=== PATIENT | female | born 1990 | race Caucasian/White ===

== ENCOUNTER 2017-01-08 22:35 | Emergency (ER) | payer SELFPAY ==
[~2017-01-08] VITALS: Ht 152.4 cm; Wt 61.4 kg
[2017-01-08 23:11] VITALS: Ht 152.4 cm; Wt 61.4 kg
[2017-01-09] MEDS ORDERED: IBUPROFEN 600 MG TAB PO ONE (03:00)
[2017-01-09] MEDS ORDERED: IBUP-1542 PO (03:04)
[2017-01-09] MEDS ORDERED: ERYT1OIN6 LEFT EYE (03:04)
[2017-01-09] MEDS ORDERED: AMOX1TAB10 PO (03:04)
--- NOTE | 2017-01-09 03:19 | ERD ---
ER Documentation Chief Complaint Date/Time DATE: 01/09/17 TIME: 03:17 Chief Complaint BODYACHES, SORE THROAT, LT EYE PAIN X2 DAYS. HPI 26-year-old male presents to emergency department for complaints of sore throat body aches and fever that started 2 days ago, patient describes the pain as throbbing pain, 6/10 scale, as was upon swallowing. Patient is also complaining of left upper eyelid pain, swelling the left upper eyelid, more on the outer canthus, complains of pain sharp pain 4/10 scale, she was upon touching the area. Patient denies any eye discharge. Patient denies any fever or chills. ROS All systems reviewed and are negative except as per history of present illness. Medications Home Meds Active Scripts Erythromycin Base (Erythromycin) 1 Gm Oint...g., 1 GM LEFT EYE Q4H WHILE AWAKE for 7 Days Prov:SUE ADAMSON NP 01/09/17 Ibuprofen* (Motrin*) 600 Mg Tab, 600 MG PO Q6H Y for PAIN AND OR ELEVATED TEMP, #30 TAB Prov:SUE ADAMSON NP 01/09/17 Amoxicillin/Potassium Clav (Amox-Clav 875-125 mg Tablet) 875-125 mg Tab, 1 TAB PO BID for 10 Days, #20 TAB Prov:SUE ADAMSON NP 01/09/17 Allergies Allergies: Coded Allergies: No Known Drug Allergy (Verified Allergy, Unknown, 01/08/17) PMhx/Soc Medical and Surgical Hx: pt denies Medical Hx, pt denies Surgical Hx Hx Alcohol Use: Yes Hx Substance Use: No Hx Tobacco Use: No Smoking Status: Never smoker FmHx Family History: No coronary disease, No diabetes, No other Physical Exam Vitals Vital Signs Date Time Temp Pulse Resp B/P Pulse Ox O2 Delivery O2 Flow Rate FiO2 01/08/17 23:11 99.3 93 20 116/58 100 Physical Exam GENERAL: The patient is well developed and appropriate for usual state of health, in no apparent distress. HEENT: Atraumatic. Bilateral eyes are PERRLA EOMs intact. Noted stye on the left upper eyelid outer canthus. No swelling surrounding the eye. Ears: Normal tympanic membrane, no erythema or bulging. No ear canal swelling. No ear discharge. Nose: normal nasal turbinates, no erythema or swelling. Normal nasal discharge. Throat: oropharynx erythematous with tonsillar swelling and tonsillar exudates noted. No lymphadenopathy. CHEST: Clear to auscultation bilaterally. There are no rales, wheezes or rhonchi. HEART: Regular rate and rhythm. No murmurs, clicks, rubs or gallops. No S3 or S4. ABDOMEN: Soft, nontender and nondistended. Good bowel sounds. No rebound or guarding. No gross peritonitis. No gross organomegaly or masses. No Camacho sign or McBurney point tenderness. BACK: No midline or flank tenderness. EXTREMITIES: Equal pulses bilaterally. There is no peripheral clubbing, cyanosis or edema. No focal swelling or erythema. Full range of motion. Grossly neurovascularly intact. NEURO: Alert and oriented. Cranial nerves 2-12 intact. Motor strength in all 4 extremities with 5/5 strength. Sensation grossly intact. Normal speech and gait. SKIN: There is no apparent rash or petechia. The skin is warm and dry. HEMATOLOGIC AND LYMPHATIC: There is no evidence of excessive bruising or lymphedema. No gross cervical, axillary, or inguinal lymphadenopathy. Results 24 hrs Current Medications Medications (Trade) Dose Ordered Sig/Felipe Route PRN Reason Start Time Stop Time Status Last Admin Dose Admin Ibuprofen (Motrin) 600 mg ONCE ONCE PO 01/09/17 03:00 01/09/17 03:01 DC 01/09/17 03:01 Patient was given medication for pain here in emergency department, after treatment, patient verbalized feeling much better. Patient's pain is improved. Procedures/MDM Medical decision making: Patient symptoms is likely consistent with acute bacterial pharyngitis, most likely strep throat. Low suspicion for peritonsillar abscess, mononucleosis, no symptoms of epiglottitis, laryngitis. No oral airway obstruction noted. No symptoms of sepsis at this time. Patient appears well and is hemodynamically stable. Patient was given for amoxicillin, ibuprofen, erythromycin ophthalmic ointment, is advised to follow-up with primary care doctor in 2-3 days for reevaluation of symptoms. Patient is advised to do salt water gargles. Patient is advised to return to emergency department for worsening symptoms. Also has left upper eyelid stye, mistreated, does not have any symptoms of periorbital cellulitis or orbital cellulitis. Disposition: Home. Stable. Disclaimer: Inadvertent spelling and grammatical errors are likely due to EHR/ dictation software use and do not reflect on the overall quality of patient care. Also, please note that the electronic time recorded on this note does not necessarily reflect the actual time of the patient encounter. Departure Diagnosis: Primary Impression: Hordeolum Hordeolum type: externum Laterality: left Eyelid: upper Qualified Code: H00.014 - Hordeolum externum of left upper eyelid Additional Impression: Acute bacterial pharyngitis Condition: Stable Patient Instructions: Pharyngitis, Strep (Presumed), SUE Mcdonough NP Jan 09, 2017 03:19
== END 2017-01-09 03:25 | disposition home or self-care (01) ==
LOC: FTE 22:35
DX: H00.014 Hordeolum externum left upper eyelid (principal)
CPT/HCPCS: 99284

== ENCOUNTER 2018-11-03 17:58 | Emergency (ER) | payer MEDICAID, OTHER ==
[~2018-11-03] VITALS: Ht 152.4 cm; Wt 62.1 kg
[~2018-11-03 17:58] MED LIST: AMOX1TAB10 PO; CEPH-443 PO; ERYT1OIN6 LEFT EYE; IBUP-1542 PO
[2018-11-03 18:06] VITALS: BP 135/79; PULSE 66; RESP 18; Ht 152.4 cm; Wt 62.1 kg
[2018-11-03] MEDS ORDERED: LIDOCAINE/MYLANTA 40 ML BTL PO ONE (19:00)
[2018-11-03] MEDS ORDERED: HYDROCODONE/APAP (5/325) TAB PO ONE (19:00)
--- NOTE | 2018-11-04 01:08 | ERD ---
ER Documentation Chief Complaint Chief Complaint abdominal pain radiating to back x 3 days HPI Is a previously healthy 28-year-old female presenting to the emergency department complaining of midepigastric pain for the past 3 days. She feels a "pinching sensation". She is also had nausea and one episode of nonbilious and nonbloody emesis. She does eat a significant amount of spicy foods, citrus foods and usually has 2 cups of coffee per day. Her pain is improved overall. Current pain level is 7/10 in severity. She denies any fevers, chills, diarrhea, dysuria, or other symptoms at this time. She is also had some painful urination and back pain. No other symptoms reported currently. ROS All systems reviewed and are negative except as per history of present illness. Medications Home Meds Active Scripts Ibuprofen* (Motrin*) 600 Mg Tab, 600 MG PO Q6, #30 TAB Prov:SOY CONNOLLY PA-C 11/03/18 Cephalexin* (Keflex*) 500 Mg Capsule, 500 MG PO TID for 7 Days, CAP Prov:SOY CONNOLLY PA-C 11/03/18 Erythromycin Base (Erythromycin) 1 Gm Oint...g., 1 GM LEFT EYE Q4H WHILE AWAKE for 7 Days Prov:SUE ADAMSON NP 01/09/17 Ibuprofen* (Motrin*) 600 Mg Tab, 600 MG PO Q6H PRN for PAIN AND OR ELEVATED TEMP, #30 TAB Prov:SUE ADAMSON NP 01/09/17 Amoxicillin/Potassium Clav (Amox-Clav 875-125 mg Tablet) 875-125 mg Tab, 1 TAB PO BID for 10 Days, #20 TAB Prov:SUE ADAMSON NP 01/09/17 Allergies Allergies: Coded Allergies: No Known Drug Allergy (Verified Allergy, Unknown, 01/08/17) PMhx/Soc Medical and Surgical Hx: pt denies Medical Hx, pt denies Surgical Hx Hx Alcohol Use: Yes Hx Substance Use: No Hx Tobacco Use: No Smoking Status: Never smoker Physical Exam Vitals Vital Signs Date Temp Pulse Resp B/P (MAP) Pulse Ox O2 O2 Flow FiO2 Time Delivery Rate 11/03/18 97.4 66 18 135/79 99 18:06 (97) Physical Exam Const: No acute distress Head: Atraumatic Eyes: Normal Conjunctiva ENT: Normal External Ears, Nose and Mouth. Neck: Full range of motion. No meningismus. Resp: Clear to auscultation bilaterally Cardio: Regular rate and rhythm, no murmurs Abd: Soft, non tender, non distended. Normal bowel sounds Skin: No petechiae or rashes Back: No midline or flank tenderness Ext: No cyanosis, or edema Neur: Awake and alert Psych: Normal Mood and Affect Results 24 hrs Laboratory Tests Test 11/03/18 18:59 11/03/18 19:01 Bedside Urine pH (LAB) 5.5 Bedside Urine Protein (LAB) Trace Bedside Urine Glucose (UA) Negative Bedside Urine Ketones (LAB) Negative Bedside Urine Blood Negative Bedside Urine Nitrite (LAB) Negative Bedside Urine Leukocyte Esterase (L Trace POC Beta HCG, Qualitative NEGATIVE Current Medications Medications Dose Sig/Felipe Start Time Status Last (Trade) Ordered Route PRN Stop Time Admin Dose Reason Admin 40 ml ONCE ONCE 11/03/18 DC 11/03/18 Miscellaneous PO 19:00 11/03/18 18:54 Medication 19:01 (Gi Cocktail (2)) 1 tab ONCE ONCE 11/03/18 DC 11/03/18 Acetaminophen PO 19:00 11/03/18 18:54 / 19:01 Hydrocodone Bitart ([place] (5/325)) Procedures/MDM 28-year-old female presents emergency department with signs and symptoms most consistent with GERD and urinary tract infection. Low suspicion for esophageal rupture, esophagitis, pyelonephritis, serious bacterial infection, sepsis, or other emergent pathology. Patient will be treated as an outpatient with a prescription for ibuprofen and Keflex. She was given counseling regarding diet modifications for GERD. She was otherwise stable for discharge and should follow-up with her primary care physician within the next 24 to 48 hours. She was advised to return here immediately for any new or concerning symptoms per the patient agrees with the diagnosis and plan and need for follow-up and return precautions. Patient's blood pressure was elevated (>120/80) but appears stable without evidence of hypertension emergency or urgency. The patient is to follow-up and pursue outpatient monitoring and therapy with their primary care physician within 1 week and return immediately if they have any new, worsening, or concerning symptoms. Departure Diagnosis: Primary Impression: UTI (urinary tract infection) Condition: Fair Patient Instructions: Understanding Urinary Tract Infections (UTIs) Referrals: [facility] YOU HAVE RECEIVED A MEDICAL SCREENING EXAM AND THE RESULTS INDICATE THAT YOU DO NOT HAVE A CONDITION THAT REQUIRES URGENT TREATMENT IN THE EMERGENCY DEPARTMENT. FURTHER EVALUATION AND TREATMENT OF YOUR CONDITION CAN WAIT UNTIL YOU ARE SEEN IN YOUR DOCTORS OFFICE WITHIN THE NEXT 1-2 DAYS. IT IS YOUR RESPONSIBILITY TO MAKE AN APPOINTMENT FOR FOLOW-UP CARE. IF YOU HAVE A PRIMARY DOCTOR --you should call your primary doctor and schedule an appointment IF YOU DO NOT HAVE A PRIMARY DOCTOR YOU CAN CALL OUR PHYSICIAN REFERRAL HOTLINE AT IF YOU CAN NOT AFFORD TO SEE A PHYSICIAN YOU CAN CHOSE FROM THE FOLLOWING [facility] [address] [facility]. [facility] [address] [facility]. [facility] [address] [facility] [address] [facility]. [facility] [address] [facility]. [employer] [address] Additional Instructions: Call your primary care doctor TOMORROW for an appointment during the next 1-2 days.See the doctor sooner or return here if your condition worsens before your appointment time. SOY CONNOLLY PA-C Nov 04, 2018 01:08
== END 2018-11-03 19:50 | disposition home or self-care (01) ==
LOC: FTE 17:58
DX: N39.0 Urinary tract infection, site not specified (principal)
CPT/HCPCS: 81003; 81025; Z7502; Z7610; 99283